=== PATIENT | male | born 1990 | race Caucasian/White ===

== ENCOUNTER 2017-12-22 00:45 | Emergency (ER) | payer BC ==
[2017-12-22 01:07] VITALS: BP 123/71; PULSE 95; BMI 31.9
[2017-12-22] MEDS ORDERED: ALBUTEROL SO4 0.083% IH SOL 2.5 MG/3 ML VIAL.NEB. NEB ONE (01:22)
[2017-12-22] MEDS ORDERED: IBUPROFEN 600 MG TABLET (FP) PO ONE (01:22)
--- NOTE | 2017-12-22 01:22 | PDOC ---
History of Present Illness - General History Source: Patient, Family Exam Limitations: No Limitations - History of Present Illness Initial Comments: 12/22/17 01:22 The patient is a 27 year old male, with no significant PMH, who presents to the emergency department with 2 days of fever, nausea without vomiting and diarrhea (non bloody). The patient states he measured his temperature earlier today which was 101 F. The patient states he took Aleve for the fever around 2pm this afternoon with minimal relief. The patient also endorses feeling generally weak and a decreased appetite. The patient denies chest pain, shortness of breath, headache and dizziness. Denies cough, sore throat, vomit, and constipation. Denies dysuria, frequency, urgency and hematuria. Allergies: NKA <Justino Schumacher - Last Filed: 12/22/17 01:26> <Argentina Graves - Last Filed: 12/23/17 09:29> - General Chief Complaint: Shortness of Breath Stated Complaint: FEVER,DIFFICULTY BREATHING Time Seen by Provider: 12/22/17 01:07 Past History <Justino Schumacher - Last Filed: 12/22/17 01:26> - Suicide/Smoking/Psychosocial Hx Smoking History: Never smoked Have you smoked in the past 12 months: No Information on smoking cessation initiated: No Hx Alcohol Use: No Drug/Substance Use Hx: No <Argentina Graves - Last Filed: 12/23/17 09:29> - Past Medical History Allergies/Adverse Reactions: Allergies Allergy/AdvReac Type Severity Reaction Status Date / Time No Known Allergies Allergy Verified 12/22/17 01:36 Home Medications: Ambulatory Orders NK [No Known Home Medication] 12/22/17 Review of Systems - Review of Systems Comments:: 12/22/17 01:22 GENERAL/CONSTITUTIONAL: (+) Fever. (+) Weakness. HEAD, EYES, EARS, NOSE AND THROAT: No change in vision. No ear pain or discharge. No sore throat. CARDIOVASCULAR: No chest pain or shortness of breath. RESPIRATORY: No cough, wheezing, or hemoptysis. GASTROINTESTINAL: (+) Nausea. (+) Diarrhea. No vomiting or constipation. GENITOURINARY: No dysuria, frequency, or change in urination. MUSCULOSKELETAL: No joint or muscle swelling or pain. No neck or back pain. SKIN: No rash NEUROLOGIC: No headache, vertigo, loss of consciousness, or change in strength/ sensation. ENDOCRINE: No increased thirst. No abnormal weight change. HEMATOLOGIC/LYMPHATIC: No anemia, easy bleeding, or history of blood clots. ALLERGIC/IMMUNOLOGIC: No hives or skin allergy. <Justino Schumacher - Last Filed: 12/22/17 01:26> *Physical Exam - Vital Signs Last Vital Signs Temp Pulse Resp BP Pulse Ox 101.2 F H 95 H 20 123/71 97 12/22/17 00:58 12/22/17 00:58 12/22/17 00:58 12/22/17 00:58 12/22/17 00:58 <SchumacherJustino - Last Filed: 12/22/17 01:26> - Vital Signs Last Vital Signs Temp Pulse Resp BP Pulse Ox 101.2 F H 95 H 20 123/71 97 12/22/17 00:58 12/22/17 00:58 12/22/17 00:58 12/22/17 00:58 12/22/17 00:58 - Physical Exam Comments: GENERAL: Awake, alert, and fully oriented, in no acute distress HEAD: No signs of trauma EYES: PERRLA, EOMI, sclera anicteric, conjunctiva clear ENT: Auricles normal inspection, hearing grossly normal, nares patent, oropharynx clear without exudates. Moist mucosa NECK: Normal ROM, supple, no lymphadenopathy, JVD, or masses LUNGS: Breath sounds equal, clear to auscultation bilaterally. No wheezes, and no crackles HEART: Regular rate and rhythm, normal S1 and S2, no murmurs, rubs or gallops ABDOMEN: Soft, nontender, normoactive bowel sounds. No guarding, no rebound. No masses EXTREMITIES: Normal range of motion, no edema. No clubbing or cyanosis. No cords, erythema, or tenderness NEUROLOGICAL: Cranial nerves II through XII grossly intact. Normal speech, normal gait SKIN: Warm, Dry, normal turgor, no rashes or lesions noted. <Argentina Graves - Last Filed: 12/23/17 09:29> Medical Decision Making - Medical Decision Making 12/22/17 02:[address] Gardiner at shift change. Awaiting chest x-ray and albuterol. <Argentina Graves - Last Filed: 12/23/17 09:29> *DC/Admit/Observation/Transfer - Attestations Scribe Attestion: 12/22/17 01:23 Documentation prepared by Justino Schumacher, acting as medical director/head team physician for Argentina Graves MD. <Justino Schumacher - Last Filed: 12/22/17 01:26> - Discharge Dispostion Decision to Admit order: No <Argentina Graves - Last Filed: 12/23/17 09:29> Diagnosis at time of Disposition: Viral syndrome - Discharge Dispostion Disposition: HOME Condition at time of disposition: Stable - Patient Instructions Printed Discharge Instructions: DI for Influenza -- Adult, DI for Viral Syndrome Additional Instructions: Drink plenty of fluids and take tylenol or motrin as needed for fevers and pain. Follow up with your primary doctor within 1 week.
[2017-12-22 02:31] VITALS: TEMP 99.5
--- NOTE | 2017-12-22 02:52 | PDOC ---
*Physical Exam - Vital Signs Last Vital Signs Temp Pulse Resp BP Pulse Ox 99.5 F 95 H 20 123/71 97 12/22/17 02:31 12/22/17 00:58 12/22/17 00:58 12/22/17 00:58 12/22/17 00:58 - Physical Exam Comments: 12/22/17 02:51 "GENERAL: Awake, alert, and fully oriented, in no acute distress. HEAD: No signs of trauma EYES: PERRLA, EOMI, sclera anicteric, conjunctiva clear ENT: Auricles normal inspection, hearing grossly normal, nares patent, oropharynx clear without exudates. Moist mucosa NECK: Nontender, no stepoffs, Normal ROM, supple, no lymphadenopathy, JVD, or masses LUNGS: Breath sounds equal, clear to auscultation bilaterally. No wheezes, and no crackles HEART: Regular rate and rhythm, normal S1 and S2, no murmurs, rubs or gallops ABDOMEN: Soft, nontender, normoactive bowel sounds. No guarding, no rebound. No masses EXTREMITIES: Normal range of motion, no edema. No clubbing or cyanosis. No cords, erythema, or tenderness NEUROLOGICAL: Cranial nerves II through XII intact. 5/5 strength and sensation in all extremities, Normal speech, normal gait, normal cerebellar function SKIN: Warm, Dry, normal turgor, no rashes or lesions noted. " ED Treatment Course - Medications Given in the ED: ED Medications Discontinued Medications Generic Name Dose Route Start Last Admin Trade Name Freq PRN Reason Stop Dose Admin Albuterol Sulfate 1 amp 12/22/17 01:22 12/22/17 01:36 Ventolin 0.083% Nebulizer Soln - NEB 12/22/17 01:23 1 amp ONCE ONE Administration Ibuprofen 600 mg 12/22/17 01:22 12/22/17 01:36 Motrin - PO 12/22/17 01:23 600 mg ONCE ONE Administration Medical Decision Making - Medical Decision Making 12/22/17 02:52 27 M with likely viral syndrome. CXR with no consolidation Pt is well appearing, with normal vitals. Clinically stable for DC at this time. I discussed the physical exam findings, ancillary test results and final diagnoses with the patient. I answered all of the patient's questions. The patient was satisfied with the care received and felt comfortable with the discharge plan and treatment plan. The patient agrees to follow up with the primary care physician within 24-72 hours. *DC/Admit/Observation/Transfer Diagnosis at time of Disposition: Viral syndrome - Discharge Dispostion Disposition: HOME Condition at time of disposition: Stable - Referrals - Patient Instructions Printed Discharge Instructions: DI for Influenza -- Adult, DI for Viral Syndrome Additional Instructions: Drink plenty of fluids and take tylenol or motrin as needed for fevers and pain. Follow up with your primary doctor within 1 week. - Post Discharge Activity - Attestations Physician Attestion: 12/22/17 02:53 I, Dr. Elias Gardiner MD, attest that this document has been prepared under my direction and personally reviewed by me in its entirety. I further attest, that it accurately reflects all work, treatment, procedures and medical decision -making performed by me.
== END 2017-12-22 02:59 | disposition home or self-care (01) ==
LOC: JER 00:45
PROC: 3E0F7GC Introduction of Other Therapeutic Substance into Respiratory Tract, Via Natural or Artificial Opening (ICD-10-PCS; principal; 2017-12-22)
DX: B34.9 Viral infection, unspecified (principal)
CPT/HCPCS: 71046-TC-FY; 99282-25

== ENCOUNTER 2017-12-24 22:02 | Emergency (ER) | payer BC ==
[2017-12-24 22:13] VITALS: TEMP 98.6; BMI 30.7
--- NOTE | 2017-12-24 23:12 | PDOC ---
History of Present Illness - General History Source: Patient Exam Limitations: No Limitations - History of Present Illness Initial Comments: 12/24/17 23:16 The patient is a 27 year old male with no significant past medical history who presents to the ED with 5 days of abdominal pain. Patient was seen in the ED two days ago for nausea, fever, diarrhea, and abdominal pain. He was discharged home with motrin and tylenol. Patient returns tonight for progressively worsening abdominal pain and diarrhea. He states his nausea and fever resided. He reports mid lower quadrant pain that is worsened in his right lower quadrant. He states his abdominal pain is sharp in nature. Patient also reports multiple episodes of watery stool. Patient states he recently came back from [place] a week ago. Denies fever or chills. Denies chest pain or shortness of breath. Denies cough. Denies vomiting. Denies change in urinary output. Denies any other symptoms. <Paulo Brown - Last Filed: 12/24/17 23:16> <Kailee Carlos - Last Filed: 12/25/17 02:13> - General Chief Complaint: Pain, Acute Stated Complaint: STOMACH PAIN Time Seen by Provider: 12/24/17 22:57 Past History <Paulo Brown - Last Filed: 12/24/17 23:16> - Past Medical History COPD: No - Immunization History Immunization Up to Date: Yes - Suicide/Smoking/Psychosocial Hx Smoking History: Never smoked Have you smoked in the past 12 months: No Hx Alcohol Use: No Drug/Substance Use Hx: No Substance Use Type: None <Kailee Carlos - Last Filed: 12/25/17 02:13> - Past Medical History Allergies/Adverse Reactions: Allergies Allergy/AdvReac Type Severity Reaction Status Date / Time No Known Allergies Allergy Verified 12/22/17 01:36 Home Medications: Ambulatory Orders NK [No Known Home Medication] 12/22/17 Review of Systems - Review of Systems Able to Perform ROS?: Yes Comments:: 12/24/17 23:16 CONSTITUTIONAL: Absent: fever, chills, diaphoresis, generalized weakness, malaise, loss of appetite HEENT: Absent: rhinorrhea, nasal congestion, throat pain, throat swelling, difficulty swallowing, mouth swelling, ear pain, eye pain, visual Changes CARDIOVASCULAR: Absent: chest pain, syncope, palpitations, irregular heart rate, lightheadedness , peripheral edema RESPIRATORY: Absent: cough, shortness of breath, dyspnea with exertion, orthopnea, wheezing, stridor, hemoptysis GASTROINTESTINAL: + abdominal pain, diarrhea Absent: abdominal distension, nausea, vomiting, constipation, melena, hematochezia GENITOURINARY: Absent: dysuria, frequency, urgency, hesitancy, hematuria, flank pain, genital pain MUSCULOSKELETAL: Absent: myalgia, arthralgia, joint swelling SKIN: Absent: rash, itching, pallor HEMATOLOGIC/IMMUNOLOGIC: Absent: easy bleeding, easy bruising, lymphadenopathy, frequent infections ENDOCRINE: Absent: unexplained weight gain, unexplained weight loss, heat intolerance, cold intolerance NEUROLOGIC: Absent: headache, focal weakness or paresthesias, dizziness, unsteady gait, seizure, mental status changes, bladder or bowel incontinence PSYCHIATRIC: Absent: anxiety, depression, suicidal or homicidal ideation, hallucinations. All Other Systems: Reviewed and Negative <Paulo Brown - Last Filed: 12/24/17 23:16> *Physical Exam - Vital Signs Last Vital Signs Temp Pulse Resp BP Pulse Ox 98.6 F 69 20 136/86 97 12/24/17 22:08 12/24/17 22:08 12/24/17 22:08 12/24/17 22:08 12/24/17 22:08 - Physical Exam Comments: 12/24/17 23:16 GENERAL: Well developed, well nourished. Awake and alert. No acute distress. HEENT: Normocephalic, atraumatic. PERRLA, EOMI. No conjunctival pallor. Sclera are non- icteric. Moist mucous membranes. Oropharynx is clear. NECK: Supple. Full ROM. No JVD. Carotid pulses 2+ and symmetric, without bruits. No thyromegaly. No lymphadenopathy. CARDIOVASCULAR: Regular rate and rhythm. No murmurs, rubs, or gallops. Distal pulses are 2+ and symmetric. PULMONARY: No evidence of respiratory distress. Lungs clear to auscultation bilaterally. No wheezing, rales or rhonchi. ABDOMINAL: + right lower quadrant pain, periumbilical pain Soft. Non-distended. No rebound or guarding. No organomegaly. Normoactive bowel sounds. MUSCULOSKELETAL Normal range of motion at all joints. No bony deformities or tenderness. No CVA tenderness. EXTREMITIES: No cyanosis. No clubbing. No edema. No calf tenderness. SKIN: Warm and dry. Normal capillary refill. No rashes. No jaundice. NEUROLOGICAL: Alert, awake, appropriate. Cranial nerves 2-12 intact. No deficits to light touch and temperature in face, upper extremities and lower extremities. No motor deficits in the in face, upper extremities and lower extremities. Normoreflexic in the upper and lower extremities. Normal speech. Toes are down- going bilaterally. Gait is normal without ataxia. PSYCHIATRIC: Cooperative. Good eye contact. Appropriate mood and affect. <Paulo Brown - Last Filed: 12/24/17 23:16> - Vital Signs Last Vital Signs Temp Pulse Resp BP Pulse Ox 98.6 F 69 20 136/86 97 12/24/17 22:08 12/24/17 22:08 12/24/17 22:08 12/24/17 22:08 12/24/17 22:08 <Kailee Carlos - Last Filed: 12/25/17 02:13> ED Treatment Course - LABORATORY CBC & Chemistry Diagram: 12/24/17 23:12 12/24/17 23:12 <Kailee Carlos - Last Filed: 12/25/17 02:13> Medical Decision Making - Medical Decision Making 12/25/17 02:08 ct sacn abd/pelvis normal appoendix, normal large bowel, some prominenet mesenteric adenapathy ,may consider mesenteric adenitis IMP diarrhea - <Kailee Carlos - Last Filed: 12/25/17 02:13> *DC/Admit/Observation/Transfer - Attestations Scribe Attestion: 12/24/17 23:16 Documentation prepared by Paulo Brown, acting as medical program specialist for Kailee Carlos MD <Paulo Brown - Last Filed: 12/24/17 23:16> <Kailee Carlos - Last Filed: 12/25/17 02:13> Diagnosis at time of Disposition: Mesenteric adenitis Diarrhea Qualifiers: Diarrhea type: unspecified type Qualified Code(s): R19.7 - Diarrhea, unspecified - Discharge Dispostion Disposition: HOME Condition at time of disposition: Stable - Patient Instructions Printed Discharge Instructions: DI for Mesenteric Adenitis-Adult, DI for Diarrhea and Traveler's Diarrhea -- Adult Additional Instructions: please take tylenol or motrin for pain Immodium may help with your loose stools Return for worsening symptoms
[2017-12-24] MEDS ORDERED: SODIUM CHLORIDE 1,000 ML IV STA (23:15)
[2017-12-25 00:42] LABS: HEMATOCRIT 42.6 % (35.4-49); HEMOGLOBIN 14.1 GM/dL (11.7-16.9); MCH 25.6 pg (25.7-33.7); MEAN CELL VOLUME 77.6 fl (80-96); RDW 13.5 % (11.9-15.9); WHITE BLOOD COUNT 7.1 K/mm3 (4.0-10.0)
[2017-12-25 00:43] LABS: MEAN PLT VOLUME 8.4 fl (7.5-11.1); MONO % 13.1 % (3.8-10.2); NEUT % 55.5 % (42.8-82.8); PLATELET COUNT 232 K/MM3 (134-434)
[2017-12-25 00:44] LABS: BASO % 0.4 % (0-2.0)
[2017-12-25 00:54] LABS: INR 1.15 (0.82-1.09)
[2017-12-25 01:01] LABS: ANION GAP 7 (8-16); BLOOD UREA NITROGEN 15 mg/dL (7-18); CHLORIDE 102 mmol/L (98-107); CO2 31 mmol/L (21-32); CREATININE 0.8 mg/dL (0.7-1.3); GLUCOSE,RANDOM 88 mg/dL (74-106); POTASSIUM 4.1 mmol/L (3.5-5.1); SODIUM 140 mmol/L (136-145)
[2017-12-25 01:02] LABS: ALK PHOS 53 U/L (45-117); BILIRUBIN,TOTAL 0.4 mg/dL (0.2-1.0); CALCIUM 8.8 mg/dL (8.5-10.1); SGOT/AST 21 U/L (15-37); SGPT/ALT 59 U/L (12-78); TOT PROT 7.5 g/dl (6.4-8.2)
[2017-12-25 01:28] LABS: URINE APPEARANCE CLEAR; URINE BILIRUBIN NEGATIVE (<2.0 mg/dL); URINE COLOR YELLOW; URINE GLUCOSE (UA) NEGATIVE (NEGATIVE); URINE KETONE NEGATIVE (NEGATIVE)
[2017-12-25 01:29] LABS: URINE BLOOD NEGATIVE (NEGATIVE); URINE LEUK ESTERASE NEGATIVE (NEGATIVE); URINE NITRITE NEGATIVE (NEGATIVE); URINE PROTEIN NEGATIVE (NEGATIVE); URINE UROBILINOGEN NORMAL mg/dL (0.2-1.0)
[2017-12-25 02:28] VITALS: BP 126/79; PULSE 85
== END 2017-12-25 02:30 | disposition home or self-care (01) ==
LOC: JER 22:02
PROC: 3E0337Z Introduction of Electrolytic and Water Balance Substance into Peripheral Vein, Percutaneous Approach (ICD-10-PCS; principal; 2017-12-24)
DX: I88.0 Nonspecific mesenteric lymphadenitis (principal)
CPT/HCPCS: 36415; 74177-TC; 80053; 81003; 85025; 85610; 86850; 86900; 86901; 99282-25; J7030